=== PATIENT | female | born 1985 | race African-American/Black ===

== ENCOUNTER 2021-01-14 09:30 | Emergency (ER) | payer OTHER ==
[~2021-01-14] VITALS: Ht 154.9 cm; Wt 99.8 kg
[~2021-01-14 09:30] MED LIST: DIFLUCAN150 MG PO; FLAGYL500 MG PO; HYDROCODON-ACE1 EAC5; IBUPROFEN 800800 M1; IRON325; MICONAZOLE 31 EACH VG; NOHOMEMEDICATIONS; PEPCID AC20 M1; PRENATAL MULTI1 EAC2; TUMS CHEWA500 MG/11 PO; [UNRECOGNIZED DRUG - OTHER]
[2021-01-14] MEDS ORDERED: ZANAFLEX4 MG PO (11:53)
[2021-01-14] MEDS ORDERED: NORCO5 PO (11:53)
[2021-01-14] MEDS ORDERED: IBUPROFEN 800800 M1 PO (11:53)
[2021-01-14 12:29] VITALS: BP 155/90
== END 2021-01-14 12:30 | disposition home or self-care (01) ==
LOC: M.ERS 09:30
DX: S63.592A Other specified sprain of left wrist, initial encounter (principal); S16.1XXA Strain of muscle, fascia and tendon at neck level, initial encounter; M25.511 Pain in right shoulder; F12.90 Cannabis use, unspecified, uncomplicated; K21.9 Gastro-esophageal reflux disease without esophagitis; Z98.890 Other specified postprocedural states; W10.8XXA Fall (on) (from) other stairs and steps, initial encounter; Y93.01 Activity, walking, marching and hiking; Y92.89 Other specified places as the place of occurrence of the external cause; Y99.9 Unspecified external cause status

== ENCOUNTER 2021-01-19 09:47 | Inpatient (IN) | payer OTHER ==
[~2021-01-19] VITALS: Ht 154.9 cm; Wt 99.8 kg
[~2021-01-19 09:47] MED LIST changes: +IBUPROFEN 800800 M1 PO; +NORCO5 PO; +ZANAFLEX4 MG PO
[2021-01-19 09:49] VITALS: BP 131/80
[2021-01-19 10:19] LABS: HEMATOCRIT 34.1 % (37.0-47.0); MCH 26.6 pg (26.0-34.0); MCHC 32.4 g/dL (28.0-37.0); MCV 82.1 fL (80.0-100.0); MPV 8.3 fl. (7.2-11.1); NUCLEATED RBCS 0 /100WBC; PLATELET COUNT* 228 thou/uL (150-400); RBC 4.16 mil/uL (4.20-5.00); RDW-CV 13.8 % (10.5-14.5); WBC 14.4 thou/uL (4.0-11.0)
[2021-01-19 10:28] LABS: CALCIUM 8.4 mg/dL (8.5-10.1); CREATININE 0.9 mg/dL (0.6-1.3); POTASSIUM 3.7 mmol/L (3.5-5.1)
[2021-01-19 10:32] LABS: ALBUMIN 3.1 g/dL (3.4-5.0); TOTAL BILIRUBIN 0.6 mg/dL (<0.1-1.0); TOTAL PROTEIN 6.7 g/dL (6.4-8.2)
[2021-01-19 10:33] LABS: URINE BILIRUBIN NEGATIVE (Negative); URINE BLOOD TRACE (Negative); URINE CLARITY CLEAR; URINE COLOR YELLOW; URINE GLUCOSE-RANDOM NEGATIVE (Negative); URINE KETONES TRACE (Negative); URINE LEUKOCYTES-REFLEX NEGATIVE (Negative); URINE NITRITE-REFLEX NEGATIVE (Negative); URINE PROTEIN NEGATIVE (Negative); URINE SPECIFIC GRAVITY >= 1.030 (1.005-1.030); URINE UROBILINOGEN 0.2 E.U./dl (0.2-1.0)
[2021-01-19 10:41] LABS: ABSOLUTE LYMPHOCYTES 1.2 thou/uL (0.8-5.3); ABSOLUTE MONOCYTES 1.7 thou/uL (0.0-1.2); ABSOLUTE NEUTROPHILS 11.5 thou/uL (1.6-8.1); PLATELET ESTIMATE ADEQUATE
[2021-01-19 13:39] VITALS: BP 140/65
[2021-01-19 14:00] VITALS: BP 147/93
--- NOTE | 2021-01-19 15:08 | NUR ---
PT ADMITTED WITH DIVERTICULITIS. PT ORIENTED TO ROOM. FALL RISK PRECAUTIONS PUT IN PLACE AND EDUCATION PROVIDED. PT VERBALIZED UNDERSTANDING. PAIN AND NAUSEA MEDS GIVEN ORDERED AND FLUIDS RUNNING. NPO AT THIS TIME.
[2021-01-19 15:29] LABS: CALCIUM 8.5 mg/dL (8.5-10.1); CREATININE 0.9 mg/dL (0.6-1.3)
[2021-01-19 15:32] LABS: MAGNESIUM 1.8 mg/dL (1.8-2.4); PHOSPHORUS* 2.7 mg/dL (2.5-4.9)
[2021-01-19 15:54] VITALS: BP 150/89
--- NOTE | 2021-01-19 17:03 | NUR ---
PT REMAINED ALERT AND ORIENTED. PT C/O NAUSEA AND PAIN, MEDS GIVEN ORDERED. PT FALL RISK PRECAUTIONS IN PLACE. PT CALLS OUT APPROPRIATELY.
[2021-01-19 20:35] VITALS: BP 132/84
[2021-01-19 23:27] VITALS: BP 132/76
[2021-01-20 04:05] LABS: CALCIUM 8.8 mg/dL (8.5-10.1); CREATININE 0.8 mg/dL (0.6-1.3); POTASSIUM 3.5 mmol/L (3.5-5.1)
[2021-01-20 04:06] LABS: HEMATOCRIT 31.7 % (37.0-47.0); HEMOGLOBIN 10.4 gm/dL (12.0-15.0); MCH 26.8 pg (26.0-34.0); MCHC 32.7 g/dL (28.0-37.0); MCV 81.9 fL (80.0-100.0); MPV 8.8 fl. (7.2-11.1); RBC 3.87 mil/uL (4.20-5.00); RDW-CV 13.3 % (10.5-14.5); WBC 16.8 thou/uL (4.0-11.0)
[2021-01-20 05:00] VITALS: BP 138/80
--- NOTE | 2021-01-20 06:40 | NUR ---
PT SLEPT WELL OVERNIGHT, RECEIVING IV PAIN AND NAUSEA MEDS WITH GOOD RESULT. TYLENOL GIVEN FOR TEMP 100.4. AM LABS DRAWN. UP WITH SBA TO BR TO VOID, SMALL LOOSE BM THIS MORNING. TOLERATING CLEARS. ABLE TO USE CALL LITE AND MAKE NEEDS KNOWN. ABX GIVEN ORDERED.GI CONSULTING.
[2021-01-20 07:20] VITALS: BP 137/85
[2021-01-20 16:00] VITALS: BP 153/84
--- NOTE | 2021-01-20 16:24 | NUR ---
pt remained alert and oriented. pt up with assistance. pain and nausea meds given as ordered. call light in reach. fall risk precautions in place.
[2021-01-20 19:45] VITALS: BP 132/89
[2021-01-21 05:00] VITALS: BP 141/85
[2021-01-21 05:20] LABS: HEMATOCRIT 32.1 % (37.0-47.0); HEMOGLOBIN 10.2 gm/dL (12.0-15.0); MCH 26.6 pg (26.0-34.0); MCHC 31.9 g/dL (28.0-37.0); MCV 83.5 fL (80.0-100.0); MPV 8.8 fl. (7.2-11.1); RBC 3.85 mil/uL (4.20-5.00); RDW-CV 13.8 % (10.5-14.5); WBC 16.1 thou/uL (4.0-11.0)
[2021-01-21 05:30] LABS: CALCIUM 7.9 mg/dL (8.5-10.1); CREATININE 0.9 mg/dL (0.6-1.3); MAGNESIUM 2.1 mg/dL (1.8-2.4); POTASSIUM 3.9 mmol/L (3.5-5.1)
--- NOTE | 2021-01-21 05:55 | NUR ---
PT SLEPT ON AND OFF OVERNIGHT. RECEIVING IV PAIN AND NAUSEA MEDS WITH FAIR RESULTS EVERY 4 HOURS PRN. TYLENOL GIVEN FOR PERSISTENT MILD HEADACHE. UP WITH SBA TO BR VOIDING WELL, LOOSE BM OVERNIGHT. RHAND IVF INFUSING PER PUMP, ABX GIVEN ORDERED. NO EMEIS OVERNIGHT. AM LABS. BED ALRM ON FOR SAFETY OVERNIGHT, ABLE TO USE CALL LITE AND MAKE NEEDS KNOWN.
[2021-01-21 08:30] VITALS: BP 177/117
--- NOTE | 2021-01-21 10:40 | EKG ---
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
--- NOTE | 2021-01-21 14:57 | CON ---
[address] [address] CONSULTATION Name: KARIE AVELAR Room: [address] IN M.R.#: [id number] Admission: 01/19/21 Attend Phys: Fernie Mckenzie Discharge: Date of : 83 Report #: [id number] THIS REPORT FOR: cc: Merry Henderson MD, Linda MD ~ Gurdeep Andrade MD DATE OF SERVICE: 01/20/2021 REQUESTING PHYSICIAN: Candido De Jesus DO INDICATION FOR CONSULT: Left lower quadrant abdominal pain. HISTORY OF PRESENT ILLNESS: This is a 35-year-old female with no previous history of GI issues who reports that she started having pain in the left side of her abdomen Thursday and the pain progressively got worse to the point she could not walk. This prompted her to come to the Emergency Room. During her Emergency Room visit, she had a CT of abdomen and pelvis, which revealed evidence of diverticulitis in the sigmoid colon. She also have leukocytosis. She denies any upper GI symptoms and she denies nausea, vomiting, dyspepsia, GERD or dysphagia. Prior to this, the patient reports that she had a daily bowel movement and her stool was usually loose. She denies hematochezia or melena. PAST MEDICAL HISTORY: Significant for obesity, and gastroesophageal reflux disease. ALLERGIES: No known drug allergy. MEDICATIONS: Please refer to MAR. SOCIAL HISTORY: The patient denies tobacco or alcohol use. FAMILY HISTORY: Significant for heart disease and hypothyroidism. PHYSICAL EXAMINATION: VITAL SIGNS: Reveals blood pressure of 137/85, respirations 16, pulse 86, temperature 97.5. LUNGS: Clear. CARDIOVASCULAR: Regular. ABDOMEN: Soft, mildly tender to palpation in the left lower quadrant. Bowel sounds are positive. NEUROLOGIC: The patient is alert and oriented x 3. [place] [address] CONSULTATION Name: KARIE AVELAR Room: [address] IN [facility]#: [id number] Admission: 01/19/21 Attend Phys: Fernie Mckenzie Discharge: Date of : 83 Report #: [id number] LABORATORY DATA: Reveal sodium of 137, potassium 3.5, BUN is 7, creatinine 0.8, glucose 118, total bilirubin is 0.6, lipase 45. AST is 13, ALT 22, magnesium 2.5. WBC 16.8 with hemoglobin of 10.4 and platelet of 209. IMAGING: CT of abdomen and pelvis was obtained on admission, which was significant for moderate inflammatory changes involving the proximal sigmoid colon. There is evidence of diverticulitis in this segment. ASSESSMENT AND PLAN: The patient with diverticulitis of sigmoid colon, who has been started on IV antibiotics. She feels somewhat better and tolerating diet. We will recommend low residue diet for the next 2 weeks. She will also need a colonoscopy in 6 weeks. This was explained to the patient and she is agreeable with plan. <ELECTRONICALLY SIGNED> By: Gurdeep Andrade MD 01/21/21 1457 [id number] Andrade MD /nt
--- NOTE | 2021-01-21 16:00 | NUR ---
SPOKE WTIH PT.,WHO WAS ALERT AND ORIENTED. LIVES WITH HER CHILDREN IN [place]. MOTHER IS SUPPORTIVE. NO USE OF DME. NO HX OF HH. HOPES TO GO HOME SOON WITHOUT DISCHARGE NEEDS.
[2021-01-21 16:53] VITALS: BP 156/87
--- NOTE | 2021-01-21 19:09 | NUR ---
PT ALERT AND ORIENTED. PT ON RA. UP WITH ONE PERSON ASSIST. IVF REMAIN INFUSING. ABX AND PAIN MEDS GIVEN. NO CONCERNS AT THIS TIME. WILL CONTINUE TO MONITOR.
[2021-01-21 20:45] VITALS: BP 146/87
[2021-01-22 04:30] LABS: HEMATOCRIT 32.1 % (37.0-47.0); HEMOGLOBIN 10.3 gm/dL (12.0-15.0); MCH 26.5 pg (26.0-34.0); MCHC 31.9 g/dL (28.0-37.0); MCV 83.1 fL (80.0-100.0); MPV 8.3 fl. (7.2-11.1); RBC 3.87 mil/uL (4.20-5.00); RDW-CV 13.7 % (10.5-14.5); WBC 13.9 thou/uL (4.0-11.0)
[2021-01-22 04:43] LABS: ALBUMIN 2.5 g/dL (3.4-5.0); CALCIUM 8.5 mg/dL (8.5-10.1); CREATININE 0.8 mg/dL (0.6-1.3); MAGNESIUM 1.8 mg/dL (1.8-2.4); POTASSIUM 3.8 mmol/L (3.5-5.1); TOTAL BILIRUBIN 0.4 mg/dL (<0.1-1.0); TOTAL PROTEIN 6.7 g/dL (6.4-8.2)
[2021-01-22 07:10] VITALS: BP 134/82
--- NOTE | 2021-01-22 07:14 | NUR ---
PATIENT HAS SLEPT OFF AND ON DURING THE NIGHT. VSS ON RA. MEDICATIONS GIVEN ORDERED AND CHARTED. PATIENT STILL HAVING C/O ABDOMINAL PAIN. PATIENTS MOTHER CALL AND I SPOKE WITH HER AND EDUCATED HER ON DIVERTICULITIS AND PAIN MEDICATIONS THAT WERE ORDERED FOR PATIENT NEEDED. PATIENT UP WITH SBA TO THE BATHROOM. IV IN RIGHT HAND-NS @ 100ML/HR. IV ABT GIVEN WITHOUT ANY ADVERSE SIDE EFFECTS NOTED. PATIENT INSTRUCTED TO USE CALL LIGHT WHEN NEEDING ASSISTANCE. HOURLY ROUNDS MADE. WILL CONTINUE WITH PLAN OF CARE AND NURSING TO MONITOR.
--- NOTE | 2021-01-22 12:42 | NUR ---
Nutrition: Pt assessed for high BMI. Albumin 2.5. Wt: 219#. Tolerating soft/fiber restricted diet. Pt wants to go home. Meds, hx reveiwed. Consider low risk.
--- NOTE | 2021-01-22 16:29 | NUR ---
PT REMAINED ALERT AND ORIENTED. PT RESTING IN BED AND WALKING IN ROOM. ATTEMPTING NEW PO PAIN MEDS INSTEAD OF IV PAIN MEDS. PT STATES PAIN IS TOLERABLE AT THIS TIME. FALL RISK PRECAUTIONS IN PLACE. HOURLY ROUNDING COMPLETED.
[2021-01-22 16:31] VITALS: BP 146/91
[2021-01-22] MEDS ORDERED: CIPRO500 M1 PO (17:52)
[2021-01-22] MEDS ORDERED: FLAGYL500 M1 PO (17:57)
[2021-01-22 18:01] VITALS: BP 146/91
--- NOTE | 2021-01-22 18:33 | NUR ---
PT GIVEN DISCHARGE INFORMATION, CARE NOTES, AND PRESCRIPTIONS. IV REMOVED. PT BELONGINGS GATHERED. PT LEFT AMBULATORY WITH NURSING STAFF TO HOME.
== END 2021-01-22 18:33 | disposition home or self-care (01) | DRG 871 ==
LOC: M.ERS 09:47 → M.ORTHSURG 11:55 → M.TBA-ER 11:55 → M.ORTHSURG 13:51
PROVIDERS: Family Medicine; ADMIT Internal Medicine; ATTEND Internal Medicine
DX: A41.9 Sepsis, unspecified organism (principal); K57.33 Diverticulitis of large intestine without perforation or abscess with bleeding; Z68.41 Body mass index [BMI] 40.0-44.9, adult; K52.9 Noninfective gastroenteritis and colitis, unspecified; E86.0 Dehydration; K21.9 Gastro-esophageal reflux disease without esophagitis; M25.511 Pain in right shoulder; S63.502A Unspecified sprain of left wrist, initial encounter; E66.01 Morbid (severe) obesity due to excess calories; S16.1XXA Strain of muscle, fascia and tendon at neck level, initial encounter; W10.8XXA Fall (on) (from) other stairs and steps, initial encounter; F17.200 Nicotine dependence, unspecified, uncomplicated; Z20.822 Contact with and (suspected) exposure to COVID-19; Z98.891 History of uterine scar from previous surgery; Y92.89 Other specified places as the place of occurrence of the external cause; Y93.89 Activity, other specified; Y99.8 Other external cause status; Z79.899 Other long term (current) drug therapy